=== PATIENT | female | born 1960 | race Caucasian/White ===

== ENCOUNTER 2017-10-17 19:16 | Inpatient (IN) ==
[2017-10-17] MEDS ORDERED: cefTRIAXone 1,000 MG in SODIUM CHLORIDE 0.9% 100 ML IV STA (19:52)
[2017-10-17] MEDS ORDERED: methylPREDNISolone SOD SUC 125 MG/2 ML VIAL IV STA (19:52)
[2017-10-17] MEDS ORDERED: ALBUTEROL/IPRATROPIUM 3 ML NEB RESP TX STA (19:52)
[2017-10-17] MEDS ORDERED: hydrALAZINE 20 MG/1 ML VIAL IV STA (19:52)
[2017-10-17] MEDS ORDERED: ONDANSETRON 4 MG/2 ML VIAL IV STA (19:52)
[2017-10-17] MEDS ORDERED: FUROSEMIDE 100 MG/10 ML VIAL IV STA (19:52)
[2017-10-17] MEDS ORDERED: ASPIRIN 325 MG TABLET PO STA (19:52)
[2017-10-17] MEDS ORDERED: MORPHINE 4 MG/1 ML VIAL IV STA (19:52)
[2017-10-17] MEDS ORDERED: NITROGLYCERIN 2% OINT 1 INCH/GM PACK TOP STA (19:52)
[2017-10-17] MEDS ORDERED: ONDANSETRON 4 MG/2 ML VIAL ONE (20:05)
[2017-10-17] MEDS ORDERED: cefTRIAXone 1,000 MG VIAL ONE (20:05)
[2017-10-17] MEDS ORDERED: hydrALAZINE 20 MG/1 ML VIAL ONE (20:05)
[2017-10-17] MEDS ORDERED: NITROGLYCERIN 2% OINT 1 INCH/GM PACK TOP ONE (20:05)
[2017-10-17] MEDS ORDERED: methylPREDNISolone SOD SUC 125 MG/2 ML VIAL ONE (20:06)
[2017-10-17] MEDS ORDERED: ASPIRIN 325 MG TABLET ONE (20:06)
[2017-10-17] MEDS ORDERED: MORPHINE 4 MG/1 ML VIAL ONE (20:06)
[2017-10-17 20:08] LABS: Basophils # 0.1 10*3/uL (0.0-0.2); Eosinophils # 0.5 10*3/uL (0.0-0.87); Hematocrit 49.6 VOL% (35.7-47.0); Hemoglobin 15.5 GM/DL (12.0-16.0); Immature Granulocytes % 0.2 %; Immature Granulocytes Absolute 0.03 #; Lymphocytes # 1.6 10*3/uL (1.4-4.0); Lymphocytes % 12.6 % (21.3-54.2); Mean Corpuscular HGB Conc 31.3 GM/DL (32-36); Mean Corpuscular Hemoglobin 29 PG (27-34); Mean Corpuscular Volume 91.5 FL (87-102); Mean Platelet Volume 10.3 FL (9.6-12.0); Monocytes # 0.8 10*3/uL (0.11-0.8); Monocytes % 6.6 % (1.7-12.7); Neutrophils # 9.5 10*3/uL (1.4-7.4); Neutrophils % 75.6 % (38.7-73.9); Platelet Count 352 T/CUMM (130-400); Red Blood Count 5.42 MC/CUMM (3.8-5.5); Red Cell Distribution Width 14.3 % (9.3-17.3); White Blood Count 12.5 T/CUMM (4-12)
[2017-10-17] MEDS ORDERED: FUROSEMIDE 100 MG/10 ML VIAL ONE (20:09)
[2017-10-17 20:35] LABS: Albumin 3.8 G/DL (3.4-5.0); Bilirubin,Total 0.4 MG/DL (0.2-1.0); Calcium 8.8 MG/DL (8.5-10.1); Osmolality,Calculated 277.7 MOS/KG (273-304); Potassium 4.8 MMOL/L (3.5-5.1); Total Protein 7.2 G/DL (6.4-8.3)
[2017-10-17 20:56] LABS: INR 0.9
[2017-10-17 21:05] LABS: Apearance,Urine CLEAR (Clear); Bilirubin,Urine Negative (Negative); Blood, Urine Negative (Negative); Glucose,Urine (UA) Negative (Negative); Ketones,Urine Negative (Negative); Nitrite,Urine Negative (Negative); Protein,Urine Negative; Squamous Epithelial Cell,Urine Occasional /HPF (0-10); Urine Color Straw (Yellow); Urine Specific Gravity 1.006 (1.001-1.035); Urine Urobilinogen < 2.0 EU/DL (0.2-1.0); WBC,Urine <1 /HPF (0-6)
[2017-10-17 21:15] LABS: Barbiturates Screen,Urine Negative (Negative); Benzodiazepines Screen,Urine Negative (Negative); Cannabinoid Screen,Urine Negative (Negative); Opiate Screen,Urine Negative (Negative); Phencyclidine Screen,Urine Negative (Negative)
[2017-10-17 21:25] LABS: Troponin I Only 0.322 NG/ML (0.00-0.045)
[2017-10-17] MEDS ORDERED: ONDANSETRON 4 MG/2 ML VIAL IV PRN (21:59)
[2017-10-17] MEDS ORDERED: GLUCAGON 1 MG VIAL IM PRN (21:59)
[2017-10-17] MEDS ORDERED: DEXTROSE 50% 25 GM/50 ML VIAL IV PRN (21:59)
[2017-10-17] MEDS: ALBUTEROL/IPRATROPIUM 3 ML NEB RESP TX SCH (23:13)
[2017-10-18] MEDS: AZITHROMYCIN INJ 500 MG in SODIUM CHLORIDE 0.9% 250 ML IV SCH (00:15)
[2017-10-18] MEDS: ALBUTEROL/IPRATROPIUM 3 ML NEB RESP TX SCH ×5 (02:51→21:04)
[2017-10-18] MEDS: methylPREDNISolone SOD SUC 40 MG/1 ML VIAL IV SCH ×2 (04:28→13:26)
[2017-10-18 04:36] LABS: Basophils # 0.1 10*3/uL (0.0-0.2); Basophils % 0.6 % (0.0-0.8); Eosinophils % 0.1 % (0.00-10.9); Hematocrit 45.8 VOL% (35.7-47.0); Hemoglobin 14.5 GM/DL (12.0-16.0); Immature Granulocytes % 0.6 %; Immature Granulocytes Absolute 0.06 #; Lymphocytes # 0.6 10*3/uL (1.4-4.0); Lymphocytes % 5.7 % (21.3-54.2); Mean Corpuscular HGB Conc 31.7 GM/DL (32-36); Mean Corpuscular Hemoglobin 29 PG (27-34); Mean Corpuscular Volume 91.8 FL (87-102); Mean Platelet Volume 10.4 FL (9.6-12.0); Monocytes # 0.1 10*3/uL (0.11-0.8); Monocytes % 0.8 % (1.7-12.7); Neutrophils % 92.2 % (38.7-73.9); Platelet Count 307 T/CUMM (130-400); Red Blood Count 4.99 MC/CUMM (3.8-5.5); Red Cell Distribution Width 14.2 % (9.3-17.3); White Blood Count 9.7 T/CUMM (4-12)
[2017-10-18 05:01] LABS: Calcium 8.5 MG/DL (8.5-10.1); Osmolality,Calculated 288.5 MOS/KG (273-304); Potassium 5.1 MMOL/L (3.5-5.1); Risk Ratio 3.33; Thyroid Stimulating Hormone 0.64 uIU/ml (0.358-3.74); VLDL CHOLESTEROL 11.8 MG/DL
[2017-10-18 05:25] LABS: Giant Platelets Few; Hypochromasia 1+; Platelet Estimate Adequate
[2017-10-18] MEDS ORDERED: hydrALAZINE 20 MG/1 ML VIAL IV PRN (06:18)
[2017-10-18] MEDS ORDERED: FUROSEMIDE 40 MG/4 ML VIAL IV SCH (09:00)
[2017-10-18] MEDS: NICOTINE 21 MG/24 HR PATCH TRANSDERM SCH (09:46)
[2017-10-18] MEDS: INSULIN REGULAR 100 UNIT/ML SUBCUT SCH ×4 (09:46→21:26)
[2017-10-18] MEDS: ENOXAPARIN 40 MG/0.4 ML SYRINGE SUBCUT SCH (09:48)
[2017-10-18] MEDS: ASPIRIN EC 81 MG TABLET PO SCH (09:59)
[2017-10-18] MEDS: LOSARTAN 50 MG TABLET PO SCH (09:59)
[2017-10-18] MEDS: cefTRIAXone 1,000 MG in SYRINGE 1 EACH IV SCH (21:27)
[2017-10-18] MEDS ORDERED: ACETAMINOPHEN 325 MG TABLET PO PRN (22:33)
[2017-10-19] MEDS: AZITHROMYCIN INJ 500 MG in SODIUM CHLORIDE 0.9% 250 ML IV SCH (00:40)
[2017-10-19] MEDS: ALBUTEROL/IPRATROPIUM 3 ML NEB RESP TX SCH ×6 (00:45→19:05)
[2017-10-19 05:50] LABS: Basophils % 0.2 % (0.0-0.8); Hematocrit 44.4 VOL% (35.7-47.0); Hemoglobin 14.4 GM/DL (12.0-16.0); Immature Granulocytes % 0.8 %; Immature Granulocytes Absolute 0.11 #; Lymphocytes # 1.1 10*3/uL (1.4-4.0); Lymphocytes % 7.6 % (21.3-54.2); Mean Corpuscular HGB Conc 32.4 GM/DL (32-36); Mean Corpuscular Hemoglobin 29 PG (27-34); Mean Corpuscular Volume 90.4 FL (87-102); Mean Platelet Volume 10.5 FL (9.6-12.0); Monocytes # 0.9 10*3/uL (0.11-0.8); Monocytes % 6.6 % (1.7-12.7); Neutrophils % 84.8 % (38.7-73.9); Platelet Count 295 T/CUMM (130-400); Red Blood Count 4.91 MC/CUMM (3.8-5.5); Red Cell Distribution Width 14.2 % (9.3-17.3); White Blood Count 14.2 T/CUMM (4-12)
[2017-10-19 06:09] LABS: Calcium 8.7 MG/DL (8.5-10.1); Osmolality,Calculated 293.5 MOS/KG (273-304); Potassium 4.5 MMOL/L (3.5-5.1)
[2017-10-19] MEDS ORDERED: predniSONE 10 MG TABLET ONE (09:15)
[2017-10-19] MEDS: FUROSEMIDE 40 MG TABLET PO SCH (10:01)
[2017-10-19] MEDS: LOSARTAN 50 MG TABLET PO SCH (10:01)
[2017-10-19] MEDS: predniSONE 20 MG TABLET PO SCH (10:02)
[2017-10-19] MEDS: ASPIRIN EC 81 MG TABLET PO SCH (10:02)
[2017-10-19] MEDS: cefTRIAXone 1,000 MG in SYRINGE 1 EACH IV SCH (10:04)
[2017-10-19] MEDS: ENOXAPARIN 40 MG/0.4 ML SYRINGE SUBCUT SCH (10:07)
[2017-10-19] MEDS: NICOTINE 21 MG/24 HR PATCH TRANSDERM SCH (10:09)
[2017-10-19] MEDS: INSULIN REGULAR 100 UNIT/ML SUBCUT SCH ×4 (10:09→22:19)
[2017-10-19] MEDS: amLODIPine 5 MG TABLET PO SCH (16:02)
[2017-10-19] MEDS: hydrALAZINE 25 MG TABLET PO SCH ×2 (18:53→21:16)
[2017-10-20] MEDS: ALBUTEROL/IPRATROPIUM 3 ML NEB RESP TX SCH ×4 (00:06→10:40)
[2017-10-20] MEDS: AZITHROMYCIN INJ 500 MG in SODIUM CHLORIDE 0.9% 250 ML IV SCH (00:17)
[2017-10-20 04:54] LABS: Basophils % 0.2 % (0.0-0.8); Hematocrit 45.3 VOL% (35.7-47.0); Hemoglobin 14.1 GM/DL (12.0-16.0); Immature Granulocytes % 0.6 %; Immature Granulocytes Absolute 0.08 #; Lymphocytes # 2.6 10*3/uL (1.4-4.0); Lymphocytes % 19.5 % (21.3-54.2); Mean Corpuscular HGB Conc 31.1 GM/DL (32-36); Mean Corpuscular Hemoglobin 29 PG (27-34); Mean Corpuscular Volume 91.7 FL (87-102); Mean Platelet Volume 10.6 FL (9.6-12.0); Monocytes # 1.1 10*3/uL (0.11-0.8); Monocytes % 8.4 % (1.7-12.7); Neutrophils # 9.6 10*3/uL (1.4-7.4); Neutrophils % 71.3 % (38.7-73.9); Platelet Count 307 T/CUMM (130-400); Red Blood Count 4.94 MC/CUMM (3.8-5.5); Red Cell Distribution Width 14.3 % (9.3-17.3); White Blood Count 13.5 T/CUMM (4-12)
[2017-10-20 05:07] LABS: Calcium 8.7 MG/DL (8.5-10.1); Osmolality,Calculated 295.1 MOS/KG (273-304); Potassium 4.1 MMOL/L (3.5-5.1)
[2017-10-20] MEDS: cefTRIAXone 1,000 MG in SYRINGE 1 EACH IV SCH (08:55)
[2017-10-20] MEDS: NICOTINE 21 MG/24 HR PATCH TRANSDERM SCH (08:56)
[2017-10-20] MEDS: ENOXAPARIN 40 MG/0.4 ML SYRINGE SUBCUT SCH (08:56)
[2017-10-20] MEDS: predniSONE 20 MG TABLET PO SCH (08:57)
[2017-10-20] MEDS: hydrALAZINE 25 MG TABLET PO SCH (08:57)
[2017-10-20] MEDS: LOSARTAN 50 MG TABLET PO SCH (08:57)
[2017-10-20] MEDS: amLODIPine 5 MG TABLET PO SCH (08:57)
[2017-10-20] MEDS: ASPIRIN EC 81 MG TABLET PO SCH (08:57)
[2017-10-20] MEDS: FUROSEMIDE 40 MG TABLET PO SCH (08:58)
[2017-10-20] MEDS: INSULIN REGULAR 100 UNIT/ML SUBCUT SCH (09:52)
[2017-10-20 11:19] VITALS: BP 175/77
== END 2017-10-20 13:00 | disposition home or self-care (01) | DRG 190 ==
LOC: N.ED 19:16 → N.EDINP 21:19 → N.TELES 22:21
PROVIDERS: ADMIT Internal Medicine; ATTEND Internal Medicine